=== PATIENT | male | born 1995 | race Caucasian/White ===

== ENCOUNTER 2020-05-20 19:42 | Inpatient (IN) | payer SELFPAY ==
[~2020-05-20] VITALS: Ht 188 cm; Wt 102.2 kg
[2020-05-20 20:24] LABS: COLLECTION METHOD CLEAN CATCH
[2020-05-20] MEDS ORDERED: PROAIR HFA0.09 MG/AC IH (20:24)
[2020-05-20 20:54] LABS: HEMOGLOBIN 15.6 g/dl (13.5-18.0); MEAN CELL VOLUME 84 fl (80.0-100.0); MEAN CORPUSCULAR HEMOGLOBIN 28 pg (27.0-31.0); MEAN CORPUSCULAR HGB CONC 34 g/dl (33.0-37.0); MEAN PLATELET VOLUME 9.4 fl (7.4-10.4); PLATELET COUNT 312 K/mm3 (130-400); RED BLOOD COUNT 5.49 M/mm3 (4.20-5.60); REDCELL DISTRIBUTION WIDTH-CV 12.6 % (11.5-14.5)
[2020-05-20 21:07] LABS: BAND 3 % (0-10); LYMPHOCYTE 8 % (20.0-51.0); NEUTROPHILS 82 % (42.0-75.2)
[2020-05-20 21:08] LABS: PLATELET ESTIMATE NORMAL (NORMAL)
[2020-05-20 21:13] LABS: ALBUMIN 4.6 gm/dL (3.5-5.0); BILIRUBIN,TOTAL 4.4 mg/dL (0.0-1.0); CALCIUM 9.2 mg/dL (8.4-10.2); CREATININE, serum 0.95 (0.66-1.25); TOTAL PROTEIN 8.2 gm/dL (6.4-8.2)
[2020-05-20 21:50] LABS: MUCOUS Present /lpf; PH 6 (5-8); SQUAMOUS EPITHELIAL 0-2 /hpf; URINE APPEARANCE Clear; URINE BACTERIA None Seen /hpf; URINE BILIRUBIN Negative (NEGATIVE); URINE BLOOD Negative (NEGATIVE); URINE COLOR Amber; URINE GLUCOSE Negative (NEGATIVE); URINE KETONE Trace (NEGATIVE); URINE LEUKOCYTE ESTERASE Negative (NEGATIVE); URINE NITRATE Negative (NEGATIVE); URINE PROTEIN(semi-quant) 1+ (NEGATIVE); URINE RBC None Seen /hpf; URINE UROBILINOGEN >=4.0 mg/dL (NEGATIVE)
[2020-05-21] VITALS (14 sets, daily range): BP systolic 110–138; BP diastolic 61–73; PULSE 56–101; TEMP 98.1–100.9
--- NOTE | 2020-05-21 01:10 | NUR ---
Fluid orders clarified with Dr. Nice. Per Dr. Nice finish current bag of NS and switch to D5NS at 125ml/hr. Fixed orders.
--- NOTE | 2020-05-21 02:01 | NUR ---
Patient arrived to surgical floor at 0115. Assessment complete. Lungs clear. Heart sounds normal. Bowels active x4. Pulses present throughout. No edema noted. IV left AC infusing without complications. Denies pain at this time. X3 lap sites CDI. Patient has fever 100.9. Given PRN motrin at this time. Orientated to surgical floor. Denies other needs at this time. Call light in reach.
--- NOTE | 2020-05-21 04:51 | NUR ---
Spoke with pharmacy. Due to incompatibilities of IV antibiotics, INT started to patient left hand at this time. Patient denies pain. Denies needs. Call light in reach.
--- NOTE | 2020-05-21 05:31 | NUR ---
Patient required x1 dose of motrin for temperature control throughout night. Otherwise uneventful night. Lap sites CDI. Resting in bed this AM. Call light in reach.
--- NOTE | 2020-05-21 06:52 | NUR ---
Report given to KVNG Freeman
--- NOTE | 2020-05-21 08:00 | NUR ---
Patient in bed resting. Alert and oriented x 3. Assessment complete. Denies pain at this time. Incision to neck with gauze is CDI. SCDs to BLE. States mild sore throat. Denies further needs at this time.
[2020-05-21 08:10] LABS: HEMATOCRIT 41.8 % (42.0-52.0); HEMOGLOBIN 13.7 g/dl (13.5-18.0); MEAN CELL VOLUME 87 fl (80.0-100.0); MEAN CORPUSCULAR HEMOGLOBIN 29 pg (27.0-31.0); MEAN CORPUSCULAR HGB CONC 33 g/dl (33.0-37.0); MEAN PLATELET VOLUME 9.2 fl (7.4-10.4); PLATELET COUNT 248 K/mm3 (130-400); REDCELL DISTRIBUTION WIDTH-CV 13.1 % (11.5-14.5)
[2020-05-21 08:27] LABS: CALCIUM 8.5 mg/dL (8.4-10.2); CREATININE, serum 0.98 (0.66-1.25); POTASSIUM 4.7 mmol/L (3.4-5.0)
--- NOTE | 2020-05-21 09:00 | NUR ---
Patient ambulating in jones independently. Steady gait.
[2020-05-21 09:44] LABS: BAND 22 % (0-10); LYMPHOCYTE 5 % (20.0-51.0); NEUTROPHILS 68 % (42.0-75.2)
[2020-05-21 09:48] LABS: PLATELET ESTIMATE NORMAL (NORMAL)
--- NOTE | 2020-05-21 09:58 | NUR ---
Initial visit; Patient thanked Line Builder for offering spiritual care, especially prayer and offering God's blessings. Line Builder will follow up.
--- NOTE | 2020-05-21 16:04 | NUR ---
Protective Clothing Issuer met with patient to discuss discharge planning. Patient lives in [place] with two roommates and advised he graduated from [employer] in November with a degree in Education. Patient states he currently works at [employer]. Patient does not have primary care set up at this time and reports he has no insurance coverage. SW spoke with patient about [facility]. Patient does not want appointment made at this time but was interested in their contact information. SW provided. Patient used to obtain his medications at [facility] before graduating. Patient reports his friends, Arash (ph#[phone]) and Cody will take him home upon discharge and help him with whatever he needs. Patient does not have Advance Directives and is not interested in setting up [facility] at this time. Patient is not and his legal next of kin would be his mother, Mary Carmen (ph#[phone]). Patient requests SW not contact his mother as she is unaware he is here. Patient states he will tell her upon discharge about his surgery, but does not want her to worry about him or insist to visit as his friend Arash is his designated visitor. Patient does not use any DME at home and is independent with ADLS. SW will continue to follow as needed.
--- NOTE | 2020-05-21 19:48 | NUR ---
Patient has done well throughout the day. Minimal needs, independent in room. Denies pain throughout the day. Antibiotics infusing per orders. Denies further needs at this time. Will report off to wink cutter operator.
--- NOTE | 2020-05-21 20:30 | NUR ---
Pt. sitting up in bed. Pt. is A&OX3, assessment complete. INT to lt. ac patent. INT to lt. hand patent. Pt. reported pain at a 3 on pain scale, gave pain meds per orders. Three abd. lap sites with bandaids, CDI. Pt. denies further needs, call light within reach.
[2020-05-22 02:26] VITALS: BP 127/70; PULSE 55; TEMP 97.8
[2020-05-22 07:51] VITALS: BP 144/62; PULSE 76; TEMP 98.3
[2020-05-22 07:55] LABS: BASO % 0.1 % (0.0-2.0); EOS % 0.1 % (0-4.0); GRAN # 14.3 (1.4-6.5); GRAN % 84.9 % (42.2-75.2); HEMATOCRIT 38.7 % (42.0-52.0); HEMOGLOBIN 12.7 g/dl (13.5-18.0); LYMPH # 1.3 (1.2-3.4); LYMPH % 7.6 % (20.0-51.0); MEAN CELL VOLUME 88 fl (80.0-100.0); MEAN CORPUSCULAR HEMOGLOBIN 29 pg (27.0-31.0); MEAN CORPUSCULAR HGB CONC 33 g/dl (33.0-37.0); MEAN PLATELET VOLUME 9.7 fl (7.4-10.4); MONO # 1.1 (0.1-0.6); MONO % 6.6 % (1.7-9.3); PLATELET COUNT 226 K/mm3 (130-400); RED BLOOD COUNT 4.41 M/mm3 (4.20-5.60); REDCELL DISTRIBUTION WIDTH-CV 13.1 % (11.5-14.5)
--- NOTE | 2020-05-22 08:00 | NUR ---
Patient sitting up in bed eating breakfast. Alert and oriented x 3. Assessment complete. States mild abdominal pain /, will call when he needs something for pain. Lap sites x 3 with edges well approximated. Antibiotics infusing per orders. Denies further needs at this time. Patient up independently in room.
--- NOTE | 2020-05-22 09:50 | NUR ---
Patient called out to nurses station, states pain 4/10 to abdomen after ambulating in room, medication given per orders.
[2020-05-22 12:24] VITALS: BP 128/70; PULSE 66; TEMP 98.3
[2020-05-22 17:19] VITALS: BP 123/62; PULSE 68; TEMP 98.1
[2020-05-22 19:32] VITALS: BP 128/63; PULSE 73; TEMP 98.3
--- NOTE | 2020-05-22 19:55 | NUR ---
Patient has done well throughout the day, antibiotics infusing per orders. Has been up ambulating in halls independently with steady gait. Denies pain or further needs at this time. Will report off to night shift supervisor.
--- NOTE | 2020-05-22 20:00 | NUR ---
PT RESTING IN BED. PLEASANT AND COOPERATIVE. NO PAIN AT THIS TIME. NO NEEDS.
[2020-05-22 23:43] VITALS: BP 126/65; PULSE 69; TEMP 99.2
[2020-05-23 04:00] VITALS: BP 129/74; PULSE 77; TEMP 98.3
[2020-05-23 05:48] LABS: BASO % 0.2 % (0.0-2.0); EOS # 0.2 (0.0-0.7); EOS % 1.3 % (0-4.0); GRAN # 9.5 (1.4-6.5); GRAN % 75.2 % (42.2-75.2); HEMOGLOBIN 11.6 g/dl (13.5-18.0); LYMPH # 1.8 (1.2-3.4); LYMPH % 14.1 % (20.0-51.0); MEAN CELL VOLUME 87 fl (80.0-100.0); MEAN CORPUSCULAR HEMOGLOBIN 29 pg (27.0-31.0); MEAN CORPUSCULAR HGB CONC 33 g/dl (33.0-37.0); MEAN PLATELET VOLUME 9.5 fl (7.4-10.4); MONO # 1.1 (0.1-0.6); MONO % 8.6 % (1.7-9.3); PLATELET COUNT 251 K/mm3 (130-400); REDCELL DISTRIBUTION WIDTH-CV 13.1 % (11.5-14.5)
[2020-05-23 05:50] LABS: HEMATOCRIT 34.7 % (42.0-52.0)
--- NOTE | 2020-05-23 08:20 | NUR ---
Lying in bed with eyes closed. Denies pain at this time. Abd lap sites x3 with edges well approximated, no redness/swelling/discharge noted. Patient says that he has been having some loose stools. Explain to let us know when has a stool for tracking purposes and also potential causes of loose stools. Patient denies additional needs at this time.
[2020-05-23 08:33] VITALS: BP 132/64; PULSE 73; TEMP 98.2
[2020-05-23] MEDS ORDERED: NORCO 325 MG-51 TAB PO (12:23)
[2020-05-23] MEDS ORDERED: FLAGYL500 MG PO (12:23)
[2020-05-23] MEDS ORDERED: AMOXICILLIN 8751 TAB PO (12:24)
[2020-05-23 12:57] VITALS: BP 143/76; PULSE 72; TEMP 98.1
--- NOTE | 2020-05-23 13:33 | NUR ---
Sitting up in bed. Patient says that he thinks he will be ready for discharge at around 1700, this will allow time for him to get up and walk and move around more. Encouraged patient to ambulate. Denies additional needs.
[2020-05-23 16:00] VITALS: BP 137/80; PULSE 73; TEMP 98.6
--- NOTE | 2020-05-23 16:15 | NUR ---
Review discahrge instructions with the patient. All questions answered. Patient verbalizes understanding and signs all discharge paperwork. Discharge packet provided to the patient. Patient will call when his ride is at the ER to pick him up.
--- NOTE | 2020-05-23 17:30 | NUR ---
Patient reports that he called [facility] regarding picking up his prescriptions and they are closed. Contacted [facility] and called in Flagyl and Augmentin per patient request. Explain to the patient that he will need to go to [facility] in the morning to apple picking supervisor the [place] as this requires written script. Patient verbalizes understanding. Contacted [facility] pharmacy and left message that they can put back the Flagyl and Augmentin as they were closed before patient discharged, but patient will come in the morning to apple picking supervisor [employer]. Phone number for surgical floor left if there were any questions.
--- NOTE | 2020-05-23 17:37 | NUR ---
Patient ride at ER to pick patient up. This nurse ambulates out with the patient with all belongings.
== END 2020-05-23 17:37 | disposition home or self-care (01) | DRG 340 ==
LOC: COL.ER 19:42 → SURG 22:33
PROVIDERS: Surgery; ADMIT Emergency Medicine
PROC: 0DTJ4ZZ Resection of Appendix, Percutaneous Endoscopic Approach (ICD-10-PCS; principal; 2020-05-21)
DX: K35.32 Acute appendicitis with perforation, localized peritonitis, and gangrene, without abscess (principal)
CPT/HCPCS: J0330; J1100; J2270; J2405; J2543; J2704; J3010; J7030; J7042; Q9967